=== PATIENT | female | born 1975 | race Caucasian/White ===

== ENCOUNTER 2024-04-29 20:54 | Emergency (ER) | payer SELFPAY ==
[2024-04-29 21:05] VITALS: BP 150/84
--- NOTE | 2024-04-29 21:33 | ED.GENMED ---
History of Present Illness
General
Chief Complaint: Crisis Evaluation
Source: patient
Exam Limitations: none
Time Seen by Provider: 04/29/24 21:26
History of Present Illness
History of Present Illness:
See MDM
Past History
Past History
ED Past Medical History: Psychiatric
ED Past Surgical History: Appendectomy
Social History
Tobacco: Non-smoker
Alcohol: None
Phy Exam
Physical Exam
Physical Exam:
See MDM
Course
Orders/Labs/Results
Orders:
Orders
04/29/24 20:59
1:1 Observation - Suicide/ Violent Behavior As Directed
04/29/24 21:31
Alcohol Urgent
Complete Blood Count/With Diff Urgent
Comprehensive Metabolic Panel Urgent
Tegretol (Carbamazepine) Urgent
Urine Drug Abuse Screen Urgent
04/29/24 21:32
Crisis Consult Urgent
Reason for Consult: SI
Vital Signs
Initial and Last Documented VS:
Initial Vital Signs
Temp Pulse Resp BP Pulse Ox
98.2 F 60 24 150/84 100
04/29/24 21:05 04/29/24 21:05 04/29/24 21:05 04/29/24 21:05 04/29/24 21:05
Last Documented Vital Signs
Temp Pulse Resp BP Pulse Ox
98.2 F 60 24 150/84 100
04/29/24 21:05 04/29/24 21:05 04/29/24 21:05 04/29/24 21:05 04/29/24 21:05
MDM/Problems Addressed
Differential Diagnosis Includes:
HPI and MDM Narrative:
49-year-old male who identifies as female is presenting with increased depression and suicidal thoughts. She spoke to lanett Abeelo and explained her thoughts and sent in for evaluation for psych placement. Patient states she is under increased
stress with financial and family issues. She claims compliance with her medicines and denies any drug or alcohol abuse. She has a plan of overdosing on methadone
Patient is comfortable with inpatient. Will have crisis evaluate
Physical exam
General: Well appearing and non-toxic
HEENT: protecting airway
Neck: appears supple
CV: No evidence of cyanosis
Resp: No accessory muscle use
Abd: Non-distended
Extremities: No deformities
Neuro: alert
Psych: Depressed affect
Skin: Intact
Problems Addressed including Acute and Chronic Conditions affecting care:
1. Suicidal ideation
Acuity: acute
Prognosis: unstable
Details: Patient currently calm and cooperative. Will place to evaluate for placement. Patient willing to go as a 201
Updates
Differential Diagnosis (but not limited to): Depression, suicidal thoughts
Testing considered: Urinalysis
Drug therapy (if applicable): OTC meds, please see d/c instruction regarding Rx drugs
Amount and/or Complexity of Data Reviewed
Clinical info obtained from: Patient
External data reviewed: N/A
Labs I independently reviewed (but not limited to): [ ]
Radiology: N/A
Pulse Ox: not hypoxic
EKG independently reviewed: N/A
Ship Scraper: N/A
Critical Care: N/A
Risk of Complication:
Social Determinants of health: Good social support
Discussed with other providers: Crisis
Escalation of Care includes Admit/Obs: Given her suicidal thoughts, crisis will search for placement
Occasional wrong word or 'sound a like' substitutions may have occurred due to the inherent limitations of voice recognition software. Read the chart carefully and recognize, using context, where substitutions have occurred.
*Critical Care Note
Total Time (30-74mins, 75-104mins- exclusive of procedures): Not Applicable
ED Attending Note
-
Portions of this chart may have been created with voice recognition software.� Occasional wrong word or��sound alike� substitutions may have occurred due to the inherent limitations of voice recognition software.
Discharge Plan
Departure
Patient Disposition: Psych Facility
Date of Disposition: 04/29/24
Time of Disposition: 21:38
Discharge Problem:
Suicidal thoughts
Interventions
Interventions:
*Risk Screen - Suicide Last Done: 04/29/24 20:55
*Neglect/Abuse Screening Last Done: 04/29/24 21:05
Discharge Date and Time
Print Language: GEORGIAN
[2024-04-29 21:52] LABS: % Basophils 0.5 % (0-2); % Immature Granulocytes 0.4 % (0-0.5); % Lymphocytes 21.6 % (20.5-51.1); % Monocytes 7.7 % (1.7-9.3); % Neutrophils 68.8 % (42.2-75.2); Absolute Basophils 0.1 10^3/uL (0-0.2); Absolute Eosinophils 0.1 10^3/uL (0-0.7); Absolute Immature Granulocytes 0.1 10^3/uL (0-0.05); Absolute Lymphocytes 2.6 10^3/uL (1.2-3.4); Absolute Monocytes 0.9 10^3/uL (0.1-0.6); Absolute Neutrophils 8.2 10^3/uL (1.4-6.5); Hematocrit 35.7 % (37.0-47.0); Hemoglobin 12.8 g/dL (12.0-16.0); Mean Corp Hgb Conc. 35.9 g/dL (33.0-37.0); Mean Corpuscular Hgb 31.4 pg (27.0-31.0); Mean Corpuscular Volume 87.5 fL (81.0-99.0); Mean Platelet Volume 9.4 fL (7.4-10.4); Nucleated Red Blood Cells % 0 %; Platelet Count 278 10^3/uL (130-400); Red Blood Cell Count 4.08 10^6/uL (4.20-5.40); Red Cell Dist. Width 13.2 % (11.5-14.5); White Blood Cell Count 11.9 10^3/uL (4.8-10.8)
[2024-04-29 21:59] LABS: Amphetamines Negative (Negative); Barbiturates Negative (Negative); Benzodiazepines Positive (Negative); Buprenorphine Negative (Negative); Cocaine Negative (Negative); Marijuana Positive (Negative); Methadone Negative (Negative); Methamphetamines Negative (Negative); Opiates Negative (Negative); Phencyclidine Negative (Negative); Tricyclic Antidepressants Negative (Negative)
[2024-04-29 22:08] LABS: ALT (SGPT) 14 U/L (0-35); AST (SGOT) 22 U/L (14-36); Alkaline Phosphatase 81 U/L (38-126); Blood Urea Nitrogen 11 mg/dl (7-17); Calcium 8.8 mg/dl (8.4-10.2); Carbon Dioxide 23 mmol/L (22-30); Chloride 98 mmol/L (98-107); Glucose 90 mg/dl (70-99); Potassium 4.4 mmol/L (3.5-5.1); Sodium 129 mmol/L (135-145); Total Bilirubin 0.1 mg/dl (0.2-1.3); Total Protein 6.5 g/dl (6.3-8.2); eGFR > 60.00
[2024-04-29 22:11] LABS: Alcohol None Detected
[2024-04-29 22:17] LABS: Fentanyl, Urine Negative (Negative); Tegretol (Carbamazepine) 13.7 ug/ml (4-12)
[2024-04-29 23:12] LABS: COVID-19 Antigen Negative (Negative)
== END 2024-04-30 01:38 ==
LOC: EMR 20:54
PROVIDERS: EMERGENCY PHYSICIAN Student in an Organized Health Care Education/Training Program; FAMILY PHYSICIAN Family Medicine
DX: R45.851 Suicidal ideations (principal); F32.A Depression, unspecified; Z73.3 Stress, not elsewhere classified; Z11.52 Encounter for screening for COVID-19; Z91.048 Other nonmedicinal substance allergy status
CPT/HCPCS: 99285; 80053; 80156; 80306; 80307; 82077; 85025; 87811